=== PATIENT | female | born 1965 | race Hispanic/Latino ===

== ENCOUNTER 2020-12-04 09:24 | Day surgery (SDC) | payer MEDICAID ==
[2020-12-04] VITALS (23 sets, daily range): BP systolic 136–188; BP diastolic 65–94
[~2020-12-04 09:24] MED LIST: 0.9%NACL 1000ML 1,000 ML IV ONE; APIX5TAB PO; CLON0.1T PO; GLIP5TAB11 PO; LOSA50TA64 PO; LOVA10TA2 PO; METF-446 PO; METO50TA18 PO
[2020-12-04] MEDS ORDERED: INDOMETHACIN 50 MG SUPP.RECT RC ONE (12:30)
[2020-12-04] MEDS ORDERED: PROPOFOL 10 MG/ML 20ML VIAL IV ONE ×2 (12:32→13:28)
[2020-12-04] MEDS ORDERED: SUCCINYLCHOLINE CHLORIDE 20 MG/ML 10 ML VIAL ONE (12:33)
[2020-12-04] MEDS ORDERED: IOHEXOL-350 50ML VIAL IV ONE (12:40)
[2020-12-04] MEDS ORDERED: HYDRALAZINE 20MG/ML VIAL ONE (14:45)
[2020-12-04] MEDS ORDERED: ONDANSETRON 4MG INJ ONE (14:50)
== END 2020-12-04 16:45 | disposition home or self-care (01) ==
LOC: ENDO 09:24 → DAH 09:24 → ENDO 16:45
PROVIDERS: ATTEND Internal Medicine Gastroenterology
DX: K80.50 Calculus of bile duct without cholangitis or cholecystitis without obstruction (principal); D64.9 Anemia, unspecified; C56.9 Malignant neoplasm of unspecified ovary; E78.5 Hyperlipidemia, unspecified; I10 Essential (primary) hypertension; E11.9 Type 2 diabetes mellitus without complications; E66.01 Morbid (severe) obesity due to excess calories; Z86.718 Personal history of other venous thrombosis and embolism; Z79.899 Other long term (current) drug therapy; Z20.828 Contact with and (suspected) exposure to other viral communicable diseases
CPT/HCPCS: 43265; 43273; 43276; 74330; 82948; A4215; A4221; A4222; A4223; A4606; A4620; A4663; C1769; C2625; C9803; J0330; J0360; J2405; J2704 ×2; J7030; Q9967; U0003